=== PATIENT | female | born 1995 | race American Indian/Alaskan Native ===

== ENCOUNTER 2021-11-04 17:38 | Emergency (ER) | payer MEDICAID ==
[2021-11-04 20:44] VITALS: BP 109/59
== END 2021-11-05 20:35 | disposition left against medical advice (07) ==
LOC: ED 17:38
DX: H02.819 Retained foreign body in unspecified eye, unspecified eyelid (principal); Z53.21 Procedure and treatment not carried out due to patient leaving prior to being seen by health care provider